=== PATIENT | male | born 1940 | race Caucasian/White ===

== ENCOUNTER 2016-10-17 00:57 | Inpatient (IN) | payer MEDICARE, MEDICAID ==
[~2016-10-17] VITALS: Ht 182.9 cm; Wt 107.0 kg
[2016-10-17 02:30] VITALS: BP 127/81
[2016-10-17] MEDS ORDERED: MAG HYDROX/AL HYDROX/SIMETH 30 ML UDC PO PRN (04:30)
[2016-10-17] MEDS ORDERED: ACETAMINOPHEN 325 MG TABLET PO PRN (04:30)
[2016-10-17] MEDS ORDERED: MAGNESIUM HYDROXIDE 30 ML UDC PO PRN (04:30)
[2016-10-17] MEDS ORDERED: LORAZEPAM 0.5 MG TABLET PO PRN (04:30)
[2016-10-17] MEDS ORDERED: RISP1TAB27 PO (04:32)
[2016-10-17] MEDS ORDERED: AMLO10TA2 PO (04:32)
[2016-10-17] MEDS ORDERED: EPIN0.3A3 IM (04:32)
[2016-10-17] MEDS ORDERED: DICL2.5D LEFTEYE (04:32)
[2016-10-17] MEDS ORDERED: MELA3TAB PO (04:32)
[2016-10-17] MEDS ORDERED: METO25TA6 PO (04:32)
[2016-10-17] MEDS ORDERED: AZEL137S7 NS (04:32)
[2016-10-17] MEDS ORDERED: PRED5DRO7 LEFTEYE (04:32)
[2016-10-17] MEDS ORDERED: MOXI3DRO LEFTEYE (04:32)
[2016-10-17] MEDS ORDERED: IPRA12.9 IH (04:32)
[2016-10-17 08:00] VITALS: BP 158/77
[2016-10-17] MEDS ORDERED: METO-302 PO (08:45)
[2016-10-17] MEDS ORDERED: RISP0.2515 PO (08:45)
[2016-10-17] MEDS ORDERED: RISP37.5 IM (08:48)
[2016-10-17 16:17] VITALS: BP 145/78
[2016-10-17] MEDS: METOPROLOL SUCCINATE 25 MG TAB.SR.24H PO SCH (16:35)
[2016-10-17] MEDS: CIPROFLOXACIN HCL 0.3% 5 ML BOTTLE LEFTEYE SCH ×3 (17:00→21:40)
[2016-10-17] MEDS ORDERED: DICLOFENAC 0.1% OPTH DROPS 5 ML BOTTLE LEFTEYE SCH (17:00)
[2016-10-17] MEDS: AZELASTINE NASAL SPRAY 30 ML BOTTLE NS SCH ×2 (17:00→18:11)
[2016-10-17] MEDS: prednisoLONE ACET 1% OPHT DROP 5 ML BOTTLE LEFTEYE SCH ×3 (17:00→21:40)
[2016-10-17 20:00] VITALS: BP 131/73
[2016-10-17] MEDS: IPRATROPIUM NEB FS 0.5 MG/2.5 ML AMPUL.NEB NEB SCH (20:43)
[2016-10-17] MEDS: BENZTROPINE MESYLATE (1 MG) 1 MG TABLET PO SCH ×2 (21:38→22:30)
[2016-10-17] MEDS: TEMAZEPAM 7.5 MG CAPSULE PO PRN (21:38)
[2016-10-17] MEDS: risperiDONE 1 MG TABLET PO SCH ×2 (21:38→22:00)
[2016-10-17] MEDS ORDERED: risperiDONE 0.25 MG TABLET PO SCH (22:00)
[2016-10-18] MEDS: IPRATROPIUM NEB FS 0.5 MG/2.5 ML AMPUL.NEB NEB SCH ×4 (01:41→20:37)
[2016-10-18 06:39] LABS: BASOPHILS % (AUTO) 0.4 % (0.0-2.0); DIFF TOTAL % 100 %; EOSINOPHILS # (AUTO) 0.1 /CMM (0.0-0.7); EOSINOPHILS % (AUTO) 1.7 % (0.0-6.0); HEMATOCRIT 39 % (39-51); HEMOGLOBIN 12.7 g/dL (13.5-17.5); LYMPHOCYTES # (AUTO) 1.1 /CMM (0.8-4.8); LYMPHOCYTES % (AUTO) 20.7 % (20.0-44.0); MEAN CORPUSCULAR HEMOGLOBIN 27 PG (26.0-33.0); MEAN CORPUSCULAR HGB CONC 33 g/dl (31.0-36.0); MEAN CORPUSCULAR VOLUME 82 fL (80-96); MONOCYTES # (AUTO) 0.5 /CMM (0.1-1.30); MONOCYTES % (AUTO) 8.4 % (2.0-12.0); NEUTROPHILS # (AUTO) 3.8 /CMM (1.8-8.9); NEUTROPHILS % (AUTO) 68.8 % (43.0-81.0); PLATELET COUNT (AUTO) 157 /CMM (150-450); RED BLOOD CELL COUNT(AUTO) 4.69 MIL/uL (4.5-6.0); WHITE BLOOD COUNT (AUTO) 5.5 K/uL (4.3-11.0)
[2016-10-18 07:48] LABS: BILIRUBIN,TOTAL 0.3 mg/dL (0.2-1.0); CALCIUM, SERUM 8.5 mg/dL (8.5-10.1); TOTAL PROTEIN, SERUM 6.3 g/dL (6.4-8.2)
[2016-10-18 08:13] VITALS: BP 160/88
[2016-10-18] MEDS ORDERED: risperiDONE 1 MG TABLET PO SCH (09:00)
[2016-10-18] MEDS: AZELASTINE NASAL SPRAY 30 ML BOTTLE NS SCH ×2 (09:00→17:00)
[2016-10-18] MEDS: CIPROFLOXACIN HCL 0.3% 5 ML BOTTLE LEFTEYE SCH ×4 (09:00→21:00)
[2016-10-18] MEDS: prednisoLONE ACET 1% OPHT DROP 5 ML BOTTLE LEFTEYE SCH ×4 (09:00→21:00)
[2016-10-18] MEDS: AMLODIPINE BESYLATE 10 MG TABLET PO SCH (11:10)
[2016-10-18] MEDS: METOPROLOL SUCCINATE 25 MG TAB.SR.24H PO SCH (11:11)
[2016-10-18] MEDS: risperiDONE 1 MG TABLET PO SCH ×2 (15:05→18:38)
[2016-10-18 15:58] VITALS: BP 140/70
[2016-10-18 19:57] VITALS: BP 145/79
[2016-10-18] MEDS: BENZTROPINE MESYLATE (1 MG) 1 MG TABLET PO SCH ×2 (21:45→22:30)
[2016-10-19] MEDS: IPRATROPIUM NEB FS 0.5 MG/2.5 ML AMPUL.NEB NEB SCH ×4 (02:08→19:17)
[2016-10-19 08:00] VITALS: BP 150/78
[2016-10-19] MEDS: METOPROLOL SUCCINATE 25 MG TAB.SR.24H PO SCH (09:05)
[2016-10-19] MEDS: risperiDONE 1 MG TABLET PO SCH ×2 (09:05→17:18)
[2016-10-19] MEDS: AMLODIPINE BESYLATE 10 MG TABLET PO SCH (09:05)
[2016-10-19] MEDS: CIPROFLOXACIN HCL 0.3% 5 ML BOTTLE LEFTEYE SCH ×4 (09:08→20:50)
[2016-10-19] MEDS: prednisoLONE ACET 1% OPHT DROP 5 ML BOTTLE LEFTEYE SCH ×4 (09:08→20:49)
[2016-10-19] MEDS: AZELASTINE NASAL SPRAY 30 ML BOTTLE NS SCH ×2 (09:08→17:21)
[2016-10-19 16:00] VITALS: BP 147/84
[2016-10-19 20:00] VITALS: BP 97/61
[2016-10-19] MEDS: BENZTROPINE MESYLATE (1 MG) 1 MG TABLET PO SCH ×2 (21:12→22:30)
[2016-10-20] MEDS: IPRATROPIUM NEB FS 0.5 MG/2.5 ML AMPUL.NEB NEB SCH ×4 (01:49→20:23)
[2016-10-20] MEDS: risperiDONE 1 MG TABLET PO SCH ×2 (08:18→17:30)
[2016-10-20] MEDS: AMLODIPINE BESYLATE 10 MG TABLET PO SCH (08:20)
[2016-10-20] MEDS: METOPROLOL SUCCINATE 25 MG TAB.SR.24H PO SCH (08:20)
[2016-10-20 08:49] VITALS: BP 153/77
[2016-10-20] MEDS: AZELASTINE NASAL SPRAY 30 ML BOTTLE NS SCH ×2 (09:04→17:00)
[2016-10-20 16:25] VITALS: BP 147/68
[2016-10-20 20:00] VITALS: BP 145/86
[2016-10-20 20:06] VITALS: BP 145/56
[2016-10-20] MEDS: BENZTROPINE MESYLATE (1 MG) 1 MG TABLET PO SCH ×2 (22:00→22:30)
[2016-10-21] MEDS: IPRATROPIUM NEB FS 0.5 MG/2.5 ML AMPUL.NEB NEB SCH ×4 (01:24→19:30)
[2016-10-21 08:00] VITALS: BP 147/85
[2016-10-21] MEDS: AZELASTINE NASAL SPRAY 30 ML BOTTLE NS SCH ×2 (09:00→17:00)
[2016-10-21] MEDS: risperiDONE 1 MG TABLET PO SCH ×2 (09:04→18:02)
[2016-10-21] MEDS: METOPROLOL SUCCINATE 25 MG TAB.SR.24H PO SCH (09:04)
[2016-10-21] MEDS: AMLODIPINE BESYLATE 10 MG TABLET PO SCH (09:05)
[2016-10-21 12:00] VITALS: BP 127/77
[2016-10-21 20:00] VITALS: BP_SYST 141; BP_DIAS 49; BP_DIAS 79
[2016-10-21] MEDS: TEMAZEPAM 7.5 MG CAPSULE PO PRN (20:54)
[2016-10-21] MEDS: BENZTROPINE MESYLATE (1 MG) 1 MG TABLET PO SCH ×2 (20:54→22:30)
[2016-10-22] MEDS: IPRATROPIUM NEB FS 0.5 MG/2.5 ML AMPUL.NEB NEB SCH ×4 (01:30→19:24)
[2016-10-22 08:00] VITALS: BP 140/90
[2016-10-22] MEDS: AMLODIPINE BESYLATE 10 MG TABLET PO SCH (10:35)
[2016-10-22] MEDS: METOPROLOL SUCCINATE 25 MG TAB.SR.24H PO SCH (10:35)
[2016-10-22] MEDS: risperiDONE 1 MG TABLET PO SCH ×2 (10:36→17:25)
[2016-10-22] MEDS: AZELASTINE NASAL SPRAY 30 ML BOTTLE NS SCH ×2 (14:00→17:00)
[2016-10-22 16:00] VITALS: BP 142/84
[2016-10-22 20:00] VITALS: BP 137/71
[2016-10-22] MEDS: BENZTROPINE MESYLATE (1 MG) 1 MG TABLET PO SCH ×2 (21:31→22:30)
[2016-10-23] MEDS: IPRATROPIUM NEB FS 0.5 MG/2.5 ML AMPUL.NEB NEB SCH ×4 (01:16→19:21)
[2016-10-23 08:00] VITALS: BP 166/87
[2016-10-23] MEDS: AZELASTINE NASAL SPRAY 30 ML BOTTLE NS SCH ×2 (09:00→17:00)
[2016-10-23] MEDS: risperiDONE 1 MG TABLET PO SCH ×2 (09:09→18:31)
[2016-10-23] MEDS: METOPROLOL SUCCINATE 25 MG TAB.SR.24H PO SCH (09:10)
[2016-10-23] MEDS: AMLODIPINE BESYLATE 10 MG TABLET PO SCH (09:10)
[2016-10-23 16:00] VITALS: BP 133/77
[2016-10-23 20:00] VITALS: BP 111/55
[2016-10-23] MEDS: BENZTROPINE MESYLATE (1 MG) 1 MG TABLET PO SCH ×2 (21:09→22:30)
[2016-10-24] MEDS: IPRATROPIUM NEB FS 0.5 MG/2.5 ML AMPUL.NEB NEB SCH ×4 (01:38→19:30)
[2016-10-24 08:00] VITALS: BP 146/79
[2016-10-24] MEDS: AZELASTINE NASAL SPRAY 30 ML BOTTLE NS SCH ×2 (09:00→17:00)
[2016-10-24] MEDS: risperiDONE 1 MG TABLET PO SCH ×2 (10:26→20:10)
[2016-10-24] MEDS: METOPROLOL SUCCINATE 25 MG TAB.SR.24H PO SCH (10:27)
[2016-10-24] MEDS: AMLODIPINE BESYLATE 10 MG TABLET PO SCH (10:28)
[2016-10-24 16:00] VITALS: BP 145/82
[2016-10-24 20:00] VITALS: BP 145/83
[2016-10-24] MEDS ORDERED: risperiDONE 1 MG TABLET PO ONE (22:00)
[2016-10-24] MEDS: BENZTROPINE MESYLATE (1 MG) 1 MG TABLET PO SCH (22:26)
[2016-10-25] MEDS: IPRATROPIUM NEB FS 0.5 MG/2.5 ML AMPUL.NEB NEB SCH ×4 (00:59→21:18)
[2016-10-25 08:00] VITALS: BP 158/89
[2016-10-25] MEDS: AZELASTINE NASAL SPRAY 30 ML BOTTLE NS SCH ×2 (09:00→17:00)
[2016-10-25] MEDS: METOPROLOL SUCCINATE 25 MG TAB.SR.24H PO SCH (09:08)
[2016-10-25] MEDS: risperiDONE 1 MG TABLET PO SCH ×2 (09:08→21:05)
[2016-10-25] MEDS: AMLODIPINE BESYLATE 10 MG TABLET PO SCH (09:08)
[2016-10-25 16:00] VITALS: BP 144/70
[2016-10-25 19:41] VITALS: BP 137/80
[2016-10-25] MEDS ORDERED: risperiDONE 1 MG TABLET PO SCH (22:00)
[2016-10-25] MEDS: BENZTROPINE MESYLATE (1 MG) 1 MG TABLET PO SCH (22:56)
[2016-10-26] MEDS: IPRATROPIUM NEB FS 0.5 MG/2.5 ML AMPUL.NEB NEB SCH ×3 (01:30→13:46)
[2016-10-26 08:00] VITALS: BP 138/76
[2016-10-26] MEDS: risperiDONE 1 MG TABLET PO SCH (08:59)
[2016-10-26 09:00] VITALS: BP 138/76
[2016-10-26] MEDS: AMLODIPINE BESYLATE 10 MG TABLET PO SCH (09:00)
[2016-10-26] MEDS: AZELASTINE NASAL SPRAY 30 ML BOTTLE NS SCH (09:00)
[2016-10-26] MEDS: METOPROLOL SUCCINATE 25 MG TAB.SR.24H PO SCH (09:00)
== END 2016-10-26 16:00 | disposition home or self-care (01) | DRG 885 ==
LOC: GPS 02:40
PROVIDERS: ADMIT Psychiatry & Neurology Psychosomatic Medicine; ATTEND Internal Medicine Nephrology
DX: F20.9 Schizophrenia, unspecified (principal); F02.80 Dementia in other diseases classified elsewhere, unspecified severity, without behavioral disturbance, psychotic disturbance, mood disturbance, and anxiety; G30.9 Alzheimer's disease, unspecified; I10 Essential (primary) hypertension; F09 Unspecified mental disorder due to known physiological condition; D64.9 Anemia, unspecified; Z91.14 Patient's other noncompliance with medication regimen; F29 Unspecified psychosis not due to a substance or known physiological condition
CPT/HCPCS: 36415; 80053-TC; 85025-TC; 87081-TC; 94799-TC

== ENCOUNTER 2016-11-20 17:25 | Inpatient (IN) | payer MEDICARE, MEDICAID ==
[~2016-11-20] VITALS: Ht 165.1 cm; Wt 105.2 kg
[~2016-11-20 17:25] MED LIST: AMLO10TA2 PO; AZEL137S7 NS; DICL2.5D LEFTEYE; IPRA12.9 IH; METO-302 PO; MOXI3DRO LEFTEYE; PRED5DRO7 LEFTEYE; RISP0.2515 PO; RISP37.5 IM
[2016-11-20 17:37] LABS: BASOPHILS % (AUTO) 0.5 % (0.0-2.0); EOSINOPHILS # (AUTO) 0.1 /CMM (0.0-0.7); EOSINOPHILS % (AUTO) 1.9 % (0.0-6.0); HEMATOCRIT 43 % (39-51); HEMOGLOBIN 13.9 g/dL (13.5-17.5); LYMPHOCYTES # (AUTO) 1.2 /CMM (0.8-4.8); LYMPHOCYTES % (AUTO) 21.6 % (20.0-44.0); MEAN CORPUSCULAR HEMOGLOBIN 27 PG (26.0-33.0); MEAN CORPUSCULAR HGB CONC 32 g/dl (31.0-36.0); MEAN CORPUSCULAR VOLUME 83 fL (80-96); MONOCYTES # (AUTO) 0.4 /CMM (0.1-1.30); MONOCYTES % (AUTO) 6.9 % (2.0-12.0); NEUTROPHILS # (AUTO) 3.9 /CMM (1.8-8.9); NEUTROPHILS % (AUTO) 69.1 % (43.0-81.0); PLATELET COUNT (AUTO) 215 /CMM (150-450); RDW COEFFICIENT OF VARIATION 13.6 (11.5-15.0); WHITE BLOOD COUNT (AUTO) 5.6 K/uL (4.3-11.0)
[2016-11-20 17:47] LABS: CARBON DIOXIDE 26 mmol/L (21-32); CHLORIDE 106 mmol/L (98-107); GLUCOSE 98 mg/dL (74-106); POTASSIUM 4.1 mmol/L (3.5-5.1); SODIUM SERUM 141 mmol/L (136-145); UREA NITROGEN, BLOOD 17 mg/dL (7-18)
[2016-11-20 17:52] LABS: ALANINE AMINOTRANSFERASE 57 U/L (12-78); ALBUMIN 3.6 g/dL (3.4-5.0); ALKALINE PHOSPHATASE 107 U/L (46-116); ASPARTATE AMINOTRANSFERASE 56 U/L (15-37); BILIRUBIN,DIRECT 0.1 mg/dL (0.0-0.2); BILIRUBIN,TOTAL 0.2 mg/dL (0.2-1.0); CALCIUM, SERUM 9.1 mg/dL (8.5-10.1); TOTAL PROTEIN, SERUM 7.5 g/dL (6.4-8.2)
[2016-11-20 17:55] LABS: APPEARANCE,URINE Clear (CLEAR); BILIRUBIN,URINE Negative (NEGATIVE); BLOOD, URINE Negative Ery/uL (NEGATIVE); COLOR,URINE Yellow (YELLOW); KETONES,URINE Negative (NEGATIVE); LEUKOCYTE ESTERASE ,URINE Negative (NEGATIVE); NITRITE, URINE Negative (NEGATIVE); PH,URINE 7.5 (5.0-8.0); PROTEIN,URINE Negative (NEGATIVE); UGLUCOSE Negative (NEGATIVE); UROBILINOGEN,URINE 0.2 EU/dL (0.2)
[2016-11-20 17:56] LABS: ACETAMINOPHEN < 2 ug/ml (10-30); ALCOHOL, BLOOD < 3 mg/dL (0-0); SALICYLATE < 2.8 mg/dL (2.8-20.0)
[2016-11-20 18:07] LABS: CANNABINOID, URINE NEGATIVE (NEGATIVE); PHENCYCLIDINE SCREEN,URINE NEGATIVE (NEGATIVE)
--- NOTE | 2016-11-20 18:15 | NUR ---
WILL FROM PRIVATE RESIDENCE FOR PSYCH EVAL: PT PARANOID AND AGRESSIVE PER SON,. ON HOLD FOR DANGER TO SELF. PATIENT IS AAO3, WITH SPISODE OF CONFUSION. NO ACUTE DISTRESS, RESPIRATION EVEN AND UNLABORED. AFEBRILE. VSS
--- NOTE | 2016-11-20 18:17 | NUR ---
REPORT GIVEN TO NURSE SOTELO FROM GPS FOR GLEN
--- NOTE | 2016-11-20 18:18 | NUR ---
PATIENT TRASPORTED TO GPS. VSS
[2016-11-20] MEDS ORDERED: MAGNESIUM HYDROXIDE 30 ML UDC PO PRN ×2 (19:00→20:30)
[2016-11-20] MEDS ORDERED: Z GUARD REMEDY 2 OZ OINT TP PRN (19:00)
[2016-11-20] MEDS ORDERED: ACETAMINOPHEN 325 MG TABLET PO PRN ×2 (19:00→20:30)
[2016-11-20] MEDS ORDERED: ONDANSETRON HCL/PF 4 MG/2 ML VIAL IVP PRN (19:00)
[2016-11-20] MEDS ORDERED: HYDROCODONE/APAP 5/325MG 1 EACH TABLET PO PRN (19:00)
[2016-11-20] MEDS ORDERED: MAG HYDROX/AL HYDROX/SIMETH 30 ML UDC PO PRN ×2 (19:00→20:30)
--- NOTE | 2016-11-20 19:00 | NUR ---
GPS RN NOTE ADMITTED A 76YO MALE FROM [facility] ER, INITIALLY CAME FROM HOME. PATIENT ADMITTED ON 5150 HOLD FOR DTS AND GD. PER HOLD PATIENT WAS EXHIBITING BIZARRE BEHAVIOR LIKE YELLING, TALKING TO SELF AND BEING DELUSIONAL AND THE FAMILY WAS CONCERNED. THE 5150 WAS REVIEWED AND THE DOCUMENTATION APPEARS TO REFLECT THE PRESENTATION OF THE PATIENT. PATIENT WAS PLACED IN BED, COMFORTABLE AND SHOWS NO S/S OR COMPLAINTS OF PAIN AT THIS TIME. NO APPARENT DISTRESS NOTED. RESPIRATIONS EVEN. BREATHING PATTERN NON LABORED WITH EQUAL RISE AND FALL OF THE CHEST. PATIENTS A/O X3. AMBULATORY AND RESPONDS TO QUESTIONS APPROPRIATELY. THOUGHT PROCESS IS INTACT. PATIENT IS UNDER THE PSYCHIATRIC CARE OF DR. DOMINGUEZ AND UNDER THE MEDICAL CARE OF DR. VILLAGOMEZ. DR. FLYNN WAS NOTIFIED FOR MED RECONCILIATION. PATIENTS BELONGS WERE INVENTORY AND CHECKED FOR CONTRABAND. PATIENTS ADVANCE DIRECTIVE PREFERENCE, IMMUNIZATION QUESTIONAIRE AND VALUABLES CHECKED IN TO SAFE. PATIENTS BED IN LOW LOCKED POSITION. WILL CONTINUE TO MONITOR PATIENT Q15 MINUTES WITH THE HELP OF THE STAFF TO MAINTAIN SAFETY.
[2016-11-20 20:00] VITALS: BP 142/96
[2016-11-20] MEDS ORDERED: LORAZEPAM 0.5 MG TABLET PO PRN (20:30)
[2016-11-21 07:38] LABS: BASOPHILS % (AUTO) 0.3 % (0.0-2.0); EOSINOPHILS # (AUTO) 0.1 /CMM (0.0-0.7); EOSINOPHILS % (AUTO) 1.7 % (0.0-6.0); HEMATOCRIT 37 % (39-51); HEMOGLOBIN 12.2 g/dL (13.5-17.5); LYMPHOCYTES # (AUTO) 0.9 /CMM (0.8-4.8); LYMPHOCYTES % (AUTO) 16.2 % (20.0-44.0); MEAN CORPUSCULAR HEMOGLOBIN 28 PG (26.0-33.0); MEAN CORPUSCULAR HGB CONC 34 g/dl (31.0-36.0); MEAN CORPUSCULAR VOLUME 82 fL (80-96); MONOCYTES # (AUTO) 0.4 /CMM (0.1-1.30); NEUTROPHILS # (AUTO) 4.3 /CMM (1.8-8.9); NEUTROPHILS % (AUTO) 74.8 % (43.0-81.0); PLATELET COUNT (AUTO) 189 /CMM (150-450); RDW COEFFICIENT OF VARIATION 14.3 (11.5-15.0); RED BLOOD CELL COUNT(AUTO) 4.44 MIL/uL (4.5-6.0); WHITE BLOOD COUNT (AUTO) 5.7 K/uL (4.3-11.0)
[2016-11-21 07:52] VITALS: BP 168/90
[2016-11-21 08:11] LABS: ALBUMIN 3.1 g/dL (3.4-5.0); BILIRUBIN,TOTAL 0.3 mg/dL (0.2-1.0); CALCIUM, SERUM 8.5 mg/dL (8.5-10.1); CREATININE 1.1 mg/dL (0.6-1.3); POTASSIUM 3.9 mmol/L (3.5-5.1); TOTAL PROTEIN, SERUM 6.7 g/dL (6.4-8.2)
[2016-11-21] MEDS: PANTOPRAZOLE 40 MG TABLET.DR PO SCH (08:30)
[2016-11-21] MEDS: AMLODIPINE BESYLATE 10 MG TABLET PO SCH (08:30)
[2016-11-21] MEDS: METOPROLOL SUCCINATE 25 MG TAB.SR.24H PO SCH (08:30)
[2016-11-21] MEDS: risperiDONE 1 MG TABLET PO SCH ×2 (13:22→16:59)
[2016-11-21] MEDS: BENZTROPINE MESYLATE (1 MG) 1 MG TABLET PO SCH ×2 (13:23→16:59)
[2016-11-21 16:01] VITALS: BP 130/88
[2016-11-21 20:00] VITALS: BP 151/75
[2016-11-22 08:00] VITALS: BP 136/87
[2016-11-22 08:53] VITALS: BP 136/87
[2016-11-22] MEDS: AMLODIPINE BESYLATE 10 MG TABLET PO SCH (09:21)
[2016-11-22] MEDS: PANTOPRAZOLE 40 MG TABLET.DR PO SCH (09:21)
[2016-11-22] MEDS: risperiDONE 1 MG TABLET PO SCH ×2 (09:22→16:34)
[2016-11-22] MEDS: METOPROLOL SUCCINATE 25 MG TAB.SR.24H PO SCH (09:22)
[2016-11-22] MEDS: BENZTROPINE MESYLATE (1 MG) 1 MG TABLET PO SCH ×2 (09:22→16:34)
[2016-11-22 16:18] VITALS: BP 125/74
[2016-11-22 19:45] VITALS: BP 146/76
[2016-11-23 08:00] VITALS: BP 132/88
[2016-11-23] MEDS: METOPROLOL SUCCINATE 25 MG TAB.SR.24H PO SCH (08:39)
[2016-11-23] MEDS: BENZTROPINE MESYLATE (1 MG) 1 MG TABLET PO SCH ×2 (08:39→18:38)
[2016-11-23] MEDS: AMLODIPINE BESYLATE 10 MG TABLET PO SCH (08:39)
[2016-11-23] MEDS: PANTOPRAZOLE 40 MG TABLET.DR PO SCH (08:39)
[2016-11-23] MEDS: risperiDONE 1 MG TABLET PO SCH ×2 (08:40→18:38)
--- NOTE | 2016-11-23 08:40 | NUR ---
ADMINISTERED ATIVAN 0.5 MG PO PRN FOR ANXIETY, PARANOIA, V/S TAKEN BP-132/88, P-63, CONTINUED MONITORING.
--- NOTE | 2016-11-23 09:21 | NUR ---
I have reviewed this patients psychosocial dated 10/20/16 and I can attest to the accuracy of the information therein. There have been no changes since his last assessment. Pt. still appears paranoid with delusional thoughts and a irritable with flat affect. He is compliant with medications. Pt. denies suicidal/homicidal ideations.
--- NOTE | 2016-11-23 09:28 | NUR ---
Initial discharge plan: Pt. lives alone at [address] [facility] [address] . Pt. has a brother, Hari Ferrara [phone] who is involved. Pt. wants to return back home upon discharge. SW will follow up with MD and Pt and will help form safe and proper discharge. Pt. may possibly need placement as he did not do well at home after previous hospitalization.
--- NOTE | 2016-11-23 10:35 | NUR ---
CARA spoke with pt's brother, Hari Ferrara [phone] who wants the hospital to initiate conservatorship as he is not able to live at home and should not be allowed to make his own decisions as he is very delusional and danger to self. CARA will follow up with . Addendum: 11/24/16 at 1200 by SAADIA MARROQUIN Hari provided pt's primary psychiatrist's number Arpita Anu [phone]
[2016-11-23 16:00] VITALS: BP 132/75
[2016-11-23 19:49] VITALS: BP 131/77
[2016-11-24 08:00] VITALS: BP 148/95
[2016-11-24] MEDS: AMLODIPINE BESYLATE 10 MG TABLET PO SCH (09:44)
[2016-11-24] MEDS: risperiDONE 1 MG TABLET PO SCH ×2 (09:45→17:56)
[2016-11-24] MEDS: PANTOPRAZOLE 40 MG TABLET.DR PO SCH (09:45)
[2016-11-24] MEDS: BENZTROPINE MESYLATE (1 MG) 1 MG TABLET PO SCH ×2 (09:45→17:57)
[2016-11-24] MEDS: METOPROLOL SUCCINATE 25 MG TAB.SR.24H PO SCH (09:46)
--- NOTE | 2016-11-24 11:59 | NUR ---
Pt's brother, Hari Ferrara [phone] called again to check on the status. SW notified MD about his requests. Will follow up .
[2016-11-24 16:00] VITALS: BP 139/88
[2016-11-24 19:54] VITALS: BP 123/77
[2016-11-25 08:00] VITALS: BP 129/76
[2016-11-25] MEDS: risperiDONE 1 MG TABLET PO SCH ×2 (09:45→18:10)
[2016-11-25] MEDS: METOPROLOL SUCCINATE 25 MG TAB.SR.24H PO SCH (09:45)
[2016-11-25] MEDS: BENZTROPINE MESYLATE (1 MG) 1 MG TABLET PO SCH ×2 (09:45→18:10)
[2016-11-25] MEDS: AMLODIPINE BESYLATE 10 MG TABLET PO SCH (09:46)
[2016-11-25] MEDS: PANTOPRAZOLE 40 MG TABLET.DR PO SCH (09:48)
[2016-11-25 16:00] VITALS: BP 134/86
--- NOTE | 2016-11-25 17:00 | NUR ---
dr. russell left note on pt,s chart.
--- NOTE | 2016-11-25 18:00 | NUR ---
dr. shin in to see pt.
--- NOTE | 2016-11-25 19:38 | NUR ---
GPS/RN NOTE: PATIENT IN BED, RESTING COMFORTABLY, NO APPARENT DISTRESS NOTED.
[2016-11-25 20:12] VITALS: BP 154/76
[2016-11-25 20:51] VITALS: BP 154/76
--- NOTE | 2016-11-25 21:32 | NUR ---
GPS/RN NOTE: PATIENT ASLEEP, SNORING. NO APPARENT DISTRESS NOTED. WILL CONTINUE TO MONITOR FOR SAFETY.
[2016-11-26 08:00] VITALS: BP 166/71
[2016-11-26] MEDS: PANTOPRAZOLE 40 MG TABLET.DR PO SCH (08:10)
[2016-11-26] MEDS: AMLODIPINE BESYLATE 10 MG TABLET PO SCH (08:10)
[2016-11-26] MEDS: BENZTROPINE MESYLATE (1 MG) 1 MG TABLET PO SCH ×2 (08:10→16:22)
[2016-11-26] MEDS: METOPROLOL SUCCINATE 25 MG TAB.SR.24H PO SCH (08:10)
[2016-11-26] MEDS: risperiDONE 1 MG TABLET PO SCH ×2 (08:11→16:22)
[2016-11-26] MEDS ORDERED: INVEGA 156 MG IM ONE (09:30)
--- NOTE | 2016-11-26 09:30 | NUR ---
RN-CO: INVEGA 156 MG IM X1 NOT GIVEN /(WEDNESDAY) PATIENT'S MED IS . DR DOMINGUEZ NOTIFIED AND ORDERED TO CANCEL ORDER.
[2016-11-26 11:20] VITALS: BP 123/76
--- NOTE | 2016-11-26 12:08 | NUR ---
[place] SHEETS requested that this insurance underwriter sales called brother who is demanding conservatorship. Spoke with brother, Hari [phone] who said " I will see that I get what I want." He said [facility] Chastity Saeed [phone] said pt. needs to be conserved. She has not met our patient. Advised brother that Dr Starr and Dr Reaves our special forces medical sergeant discussed the case and discussed he will be put on long-acting medication and we would use the least restrictive means to stabilize him.. Hari said he is worried about his assets.Provided him with referrals for probate conservatorship as this could protect patient's assets.Luis A Stover was given [phone] and [facility] [phone]. He did not want any more referrals for this. Brother was quite threatening and said " I will find a way to get what I want." Advised Dr Starr and Spring of this interaction.
[2016-11-26 16:01] VITALS: BP 151/71
--- NOTE | 2016-11-26 16:25 | NUR ---
Dr Starr made a decision to apply for [facility] conservatorship and brother Hari [phone] was advised of this by Spring Stevens.
[2016-11-26 20:00] VITALS: BP 146/75
[2016-11-27 08:00] VITALS: BP 134/88
[2016-11-27] MEDS: risperiDONE 1 MG TABLET PO SCH ×2 (08:38→16:21)
[2016-11-27] MEDS: BENZTROPINE MESYLATE (1 MG) 1 MG TABLET PO SCH ×2 (08:38→16:21)
[2016-11-27] MEDS: METOPROLOL SUCCINATE 25 MG TAB.SR.24H PO SCH (08:38)
[2016-11-27] MEDS: AMLODIPINE BESYLATE 10 MG TABLET PO SCH (08:39)
[2016-11-27] MEDS: PANTOPRAZOLE 40 MG TABLET.DR PO SCH (08:39)
--- NOTE | 2016-11-27 11:12 | NUR ---
CARA filled out LPS conservatorship paperwork and is waiting for MD to complete the rest so it can be faxed to Public Guardian's office. CARA notified the MD and it will be done today.
--- NOTE | 2016-11-27 13:53 | NUR ---
LPS conservatorship has been filled out and faxed to Public Guardian's office at [phone] phone [phone]. Will follow up
[2016-11-27 16:00] VITALS: BP 153/82
[2016-11-27] MEDS ORDERED: INVEGA 156 MG IM ONE (16:00)
[2016-11-27] MEDS ORDERED: risperiDONE 1 MG TABLET PO PRN (17:00)
--- NOTE | 2016-11-27 19:09 | NUR ---
GPS RN NOTE, RECEIVED PATIENT AWAKE AND IN BED, NO S/S OR COMPLAINTS OF PAIN AT THIS TIME. PATIENT IS DISPLAYING NO S/S OF APPARENT DISTRESS AT THIS TIME. PATIENT HAS A ONE TO ONE SITTER FOR BEING AGGRESSIVE WITH STAFF. PATIENT BREATHING IS UNLABORED WITH EQUAL RISE AND FALL OF THE CHEST. PATIENT IS ALERT AND ORIENTED X 4 ON ROOM AIR WITH A SPO2 95%. PATIENT COMPLIANT WITH MEDICATIONS, DEPRESSED, COOPERATIVE, CONFUSED AT TIMES, AND NEEDS REORIENTATION. PATIENT DENIES SUICIDE AND HOMICIDAL IDEATIONS AT THIS TIME. PATIENT ASSISTED WITH TURNING AND REPOSITIONING Q2HR AND PRN FOR COMFORT AND CIRCULATION. PATIENT HAS NO NEEDS AT THIS TIME. PATIENT EDUCATED ON THE USE OF THE CALL HOBSON. PATIENT BED SIDE RAILS UP X2 FOR SAFETY, BED IS LOCKED AND LOW WILL CONTINUE TO MONITOR AND MAINTAIN SAFETY.
[2016-11-27 20:00] VITALS: BP 143/81
[2016-11-28 08:00] VITALS: BP 151/85
[2016-11-28] MEDS: METOPROLOL SUCCINATE 25 MG TAB.SR.24H PO SCH (08:26)
[2016-11-28] MEDS: BENZTROPINE MESYLATE (1 MG) 1 MG TABLET PO SCH ×2 (08:26→17:14)
[2016-11-28] MEDS: AMLODIPINE BESYLATE 10 MG TABLET PO SCH (08:26)
[2016-11-28] MEDS: PANTOPRAZOLE 40 MG TABLET.DR PO SCH (08:26)
[2016-11-28 16:00] VITALS: BP 145/75
[2016-11-28 20:00] VITALS: BP 142/74
[2016-11-29 08:00] VITALS: BP 150/75
[2016-11-29] MEDS: AMLODIPINE BESYLATE 10 MG TABLET PO SCH (08:20)
[2016-11-29] MEDS: PANTOPRAZOLE 40 MG TABLET.DR PO SCH (08:20)
[2016-11-29] MEDS: BENZTROPINE MESYLATE (1 MG) 1 MG TABLET PO SCH ×2 (08:20→19:02)
[2016-11-29] MEDS: METOPROLOL SUCCINATE 25 MG TAB.SR.24H PO SCH (08:20)
[2016-11-29 15:43] VITALS: BP 120/71
[2016-11-29 19:51] VITALS: BP 103/63
[2016-11-30 08:00] VITALS: BP 135/79
[2016-11-30] MEDS: PANTOPRAZOLE 40 MG TABLET.DR PO SCH (08:18)
[2016-11-30] MEDS: AMLODIPINE BESYLATE 10 MG TABLET PO SCH (08:18)
[2016-11-30] MEDS: BENZTROPINE MESYLATE (1 MG) 1 MG TABLET PO SCH ×2 (08:19→16:59)
[2016-11-30] MEDS: METOPROLOL SUCCINATE 25 MG TAB.SR.24H PO SCH (08:20)
--- NOTE | 2016-11-30 13:51 | NUR ---
SW received a voicemail from [facility] from Office of Public Guardian [phone] confirming of the receipt of pt's conservatorship paperwork. CARA will follow up tomorrow on the status.
[2016-11-30 16:00] VITALS: BP 135/95
[2016-11-30 19:36] VITALS: BP 142/68
[2016-12-01 07:59] VITALS: BP 145/87
[2016-12-01] MEDS: BENZTROPINE MESYLATE (1 MG) 1 MG TABLET PO SCH ×2 (08:04→16:54)
[2016-12-01] MEDS: PANTOPRAZOLE 40 MG TABLET.DR PO SCH (08:04)
[2016-12-01] MEDS: AMLODIPINE BESYLATE 10 MG TABLET PO SCH (08:04)
[2016-12-01] MEDS: METOPROLOL SUCCINATE 25 MG TAB.SR.24H PO SCH (08:06)
--- NOTE | 2016-12-01 10:36 | NUR ---
SW received a voicemail from Hari Gurrola [phone] from the public guardian's office regarding pt's conservatorship paperwork. SW followed up.
[2016-12-01 15:10] VITALS: BP 129/79
[2016-12-01 20:01] VITALS: BP 116/57
[2016-12-02 08:00] VITALS: BP 159/80
[2016-12-02] MEDS: AMLODIPINE BESYLATE 10 MG TABLET PO SCH (09:03)
[2016-12-02] MEDS: BENZTROPINE MESYLATE (1 MG) 1 MG TABLET PO SCH ×2 (09:03→16:19)
[2016-12-02] MEDS: PANTOPRAZOLE 40 MG TABLET.DR PO SCH (09:04)
[2016-12-02] MEDS: METOPROLOL SUCCINATE 25 MG TAB.SR.24H PO SCH (11:41)
[2016-12-02 16:00] VITALS: BP 144/79
[2016-12-02 20:41] VITALS: BP 154/78
[2016-12-03 08:07] VITALS: BP 132/65
[2016-12-03] MEDS: BENZTROPINE MESYLATE (1 MG) 1 MG TABLET PO SCH ×2 (08:10→17:37)
[2016-12-03] MEDS: METOPROLOL SUCCINATE 25 MG TAB.SR.24H PO SCH (08:12)
[2016-12-03] MEDS: AMLODIPINE BESYLATE 10 MG TABLET PO SCH (08:12)
[2016-12-03] MEDS: PANTOPRAZOLE 40 MG TABLET.DR PO SCH (08:13)
[2016-12-03 15:47] VITALS: BP 126/73
--- NOTE | 2016-12-03 19:12 | NUR ---
GPS/RN NOTE: PATIENT UP AT THE DINING AREA WITH HIS ROOM MATE. NO ACUTE DISTRESS NOTED.
[2016-12-03 20:00] VITALS: BP 135/71
[2016-12-04 06:39] LABS: CALCIUM, SERUM 8.5 mg/dL (8.5-10.1); PHOSPHORUS 4.1 mg/dL (2.5-4.9); POTASSIUM 4.2 mmol/L (3.5-5.1)
[2016-12-04 08:01] VITALS: BP 142/90
[2016-12-04] MEDS: PANTOPRAZOLE 40 MG TABLET.DR PO SCH (09:28)
[2016-12-04] MEDS: AMLODIPINE BESYLATE 10 MG TABLET PO SCH (09:29)
[2016-12-04] MEDS: METOPROLOL TARTRATE 25 MG TABLET PO SCH ×2 (09:29→20:53)
[2016-12-04] MEDS: BENZTROPINE MESYLATE (1 MG) 1 MG TABLET PO SCH ×2 (09:29→17:18)
--- NOTE | 2016-12-04 09:52 | NUR ---
CARA left a voicemail for Adra from Office of Public Guardian [phone] to follow up on Conservatorship status.
--- NOTE | 2016-12-04 10:35 | NUR ---
RN-CO: DR DOMINGUEZ GAVE T.O. OF STAT EKG, NOTED.
--- NOTE | 2016-12-04 11:17 | NUR ---
RN-CO: DR DOMINGUEZ WAS NOTIFIED REGARDING THE RESULT OF EKG.AWAITING TO CALL BACK.
--- NOTE | 2016-12-04 13:13 | NUR ---
RN-CO: Patient was seen by Dr Mack with order.
--- NOTE | 2016-12-04 15:07 | NUR ---
CARA spoke with Adra from Office of Public Guardian [phone] and no TCON or Z number has been assigned yet. CARA notified the
[2016-12-04 15:34] VITALS: BP 108/52
--- NOTE | 2016-12-04 19:36 | NUR ---
GPS/RN NOTE: PATIENT SITTING AT THE BENSON-CHAIR, UPSET, ANGRY, AGITATED. NO RESPONSE WHEN ENGAGED. NO ACUTE DISTRESS NOTED.
[2016-12-04 20:00] VITALS: BP 109/70
[2016-12-05] VITALS (7 sets, daily range): BP systolic 127–143; BP diastolic 61–83
[2016-12-05] MEDS ORDERED: INVEGA 156 MG IM ONE (09:00)
[2016-12-05] MEDS: METOPROLOL TARTRATE 25 MG TABLET PO SCH ×2 (09:04→21:33)
[2016-12-05] MEDS: AMLODIPINE BESYLATE 10 MG TABLET PO SCH (09:05)
[2016-12-05] MEDS: PANTOPRAZOLE 40 MG TABLET.DR PO SCH (09:05)
[2016-12-05] MEDS: BENZTROPINE MESYLATE (1 MG) 1 MG TABLET PO SCH ×2 (09:05→18:13)
[2016-12-06 08:00] VITALS: BP 132/71
[2016-12-06] MEDS: METOPROLOL TARTRATE 25 MG TABLET PO SCH ×2 (08:05→20:25)
[2016-12-06] MEDS: BENZTROPINE MESYLATE (1 MG) 1 MG TABLET PO SCH ×2 (08:05→16:48)
[2016-12-06] MEDS: AMLODIPINE BESYLATE 10 MG TABLET PO SCH (08:05)
[2016-12-06] MEDS: PANTOPRAZOLE 40 MG TABLET.DR PO SCH (08:05)
[2016-12-06 16:00] VITALS: BP 109/71
[2016-12-06 16:17] VITALS: BP 109/71
--- NOTE | 2016-12-06 19:28 | NUR ---
GPS/RN NOTE: Received awake resting in bed, comfortable, shows no s/s of pain at this time. no apparent distress noted. Breathing pattern non-labored. Responds when engaged. Calm and no untoward behavior noted.
[2016-12-06 19:48] VITALS: BP 126/59
--- NOTE | 2016-12-06 20:25 | NUR ---
GPS/RN NOTE: BP 126/59, LOPRESSOR 12.5 MG TAB PO NOT GIVEN DBP BELOW 60
--- NOTE | 2016-12-06 21:52 | NUR ---
GPS/RN NOTE: SKIN CLEAR.
[2016-12-07] MEDS: AMLODIPINE BESYLATE 10 MG TABLET PO SCH (07:55)
[2016-12-07] MEDS: METOPROLOL TARTRATE 25 MG TABLET PO SCH ×2 (07:55→21:39)
[2016-12-07] MEDS: BENZTROPINE MESYLATE (1 MG) 1 MG TABLET PO SCH ×2 (07:55→17:00)
[2016-12-07] MEDS: PANTOPRAZOLE 40 MG TABLET.DR PO SCH (07:55)
[2016-12-07 08:00] VITALS: BP 139/87
--- NOTE | 2016-12-07 13:30 | NUR ---
CARA spoke with Hari Ferrara [phone], pt's brother, who was inquiring about an update. CARA will follow up with Hari when new information is available.
[2016-12-07 16:00] VITALS: BP 133/78
[2016-12-07 19:52] VITALS: BP 143/76
[2016-12-08 08:00] VITALS: BP 123/78
[2016-12-08] MEDS: METOPROLOL TARTRATE 25 MG TABLET PO SCH ×2 (08:34→20:35)
[2016-12-08] MEDS: BENZTROPINE MESYLATE (1 MG) 1 MG TABLET PO SCH ×2 (08:35→16:07)
[2016-12-08] MEDS: AMLODIPINE BESYLATE 10 MG TABLET PO SCH (08:35)
[2016-12-08] MEDS: PANTOPRAZOLE 40 MG TABLET.DR PO SCH (08:35)
--- NOTE | 2016-12-08 09:10 | NUR ---
CARA left a voicemail for Adra from Office of Public Guardian [phone] to follow up on Conservatorship status.
--- NOTE | 2016-12-08 11:27 | NUR ---
CARA spoke with Hari Gurrola [phone] , switch crew supervisor from Office of Public Guardian, and he provided the legal investigator's name Michelle Bassam and number [phone] to follow up with. At this point, no updated information has been provided as there is none.
--- NOTE | 2016-12-08 13:27 | NUR ---
GPS RN NOTE: DR DANIELLE SAWANT NOTIFIED OF CONSULT
[2016-12-08 16:00] VITALS: BP 121/62
--- NOTE | 2016-12-08 19:37 | NUR ---
GPS/RN NOTE: PAIENT AWAKE, ALERT, ORIENTED X3, CALM, NO NEED OR COMPLAINTS MADE AT THIS TIME.
[2016-12-08 19:55] VITALS: BP 146/82
[2016-12-08] MEDS ORDERED: DIVALPROEX SODIUM 500 MG TABLET.DR PO SCH (22:00)
[2016-12-09 08:00] VITALS: BP 145/88
[2016-12-09] MEDS: METOPROLOL TARTRATE 25 MG TABLET PO SCH ×3 (08:23→22:43)
[2016-12-09] MEDS: AMLODIPINE BESYLATE 10 MG TABLET PO SCH (08:23)
[2016-12-09] MEDS: BENZTROPINE MESYLATE (1 MG) 1 MG TABLET PO SCH ×2 (08:23→16:02)
[2016-12-09] MEDS: PANTOPRAZOLE 40 MG TABLET.DR PO SCH (08:23)
[2016-12-09 16:00] VITALS: BP 117/58
--- NOTE | 2016-12-09 16:16 | NUR ---
CARA received a voicemail from person investigator Michelle Banegas [phone] fax [phone] and she requested for additional information to be faxed (med list, 1422 copy, and recent progress note). CARA faxed all required paperwork and will follow up tomorrow.
--- NOTE | 2016-12-09 16:19 | NUR ---
CARA spoke with Hari Ferrara [phone], pt's brother, who called to get an update regarding the case.
--- NOTE | 2016-12-09 19:30 | NUR ---
RN NOTE; RECEIVED PT SITTING ON A CHAIR IN ACTIVITY ROOM W/ NO BEHAVIORAL OR PSYCH PROBLEM. BREATHING EVENLY. NO SOB.; NO DISTRESS. NO C/O PAIN OR DISCOMFORT. REMAINED UNDER CLOSE SUPERVISION FOR SAFETY. WILL CONT TO MONITOR.
--- NOTE | 2016-12-09 20:23 | NUR ---
HELD LOPRESSOR FOR LOW SBP OF 102. WILL CONT TO MONITOR
[2016-12-09 20:34] VITALS: BP 141/71
--- NOTE | 2016-12-10 06:33 | NUR ---
RN NOTE; PT IN BED AWAKE AND ALERT. NO PSYCH OR BEHAVIORAL ISSUES NOTED. NO ACUTE CHANGES DURING THE NIGHT. COMPLIANT W/ MEDS. NO C/O PAIN OR DISCOMFORT .ASSISTED W/ ADLS. NEEDS ATTENDED. WILL CONT TO MONITOR AND WILL ENDORSE TO AM SHIFT FOR GLEN.
[2016-12-10 08:00] VITALS: BP 127/72
[2016-12-10] MEDS: PANTOPRAZOLE 40 MG TABLET.DR PO SCH (08:15)
[2016-12-10] MEDS: BENZTROPINE MESYLATE (1 MG) 1 MG TABLET PO SCH ×2 (08:15→16:35)
[2016-12-10] MEDS: AMLODIPINE BESYLATE 10 MG TABLET PO SCH (08:16)
[2016-12-10] MEDS: METOPROLOL TARTRATE 25 MG TABLET PO SCH ×2 (08:16→19:57)
--- NOTE | 2016-12-10 13:00 | NUR ---
CARA left a voicemail for principal investigator from Public Guardian's office, Michelle Banegas [phone] fax [phone] requesting more information about the case. Will follow up
[2016-12-10 15:56] VITALS: BP 123/81
[2016-12-11 08:00] VITALS: BP 135/73
[2016-12-11] MEDS: PANTOPRAZOLE 40 MG TABLET.DR PO SCH (08:11)
[2016-12-11] MEDS: AMLODIPINE BESYLATE 10 MG TABLET PO SCH (08:11)
[2016-12-11] MEDS: BENZTROPINE MESYLATE (1 MG) 1 MG TABLET PO SCH ×2 (08:11→16:41)
[2016-12-11] MEDS: METOPROLOL TARTRATE 25 MG TABLET PO SCH ×2 (08:12→20:58)
[2016-12-11 16:00] VITALS: BP 127/54
[2016-12-11 20:00] VITALS: BP 140/70
[2016-12-12 08:00] VITALS: BP 151/94
[2016-12-12] MEDS: BENZTROPINE MESYLATE (1 MG) 1 MG TABLET PO SCH ×2 (08:19→18:18)
[2016-12-12] MEDS: PANTOPRAZOLE 40 MG TABLET.DR PO SCH (08:19)
[2016-12-12] MEDS: METOPROLOL TARTRATE 25 MG TABLET PO SCH ×2 (08:20→21:28)
[2016-12-12] MEDS: AMLODIPINE BESYLATE 10 MG TABLET PO SCH (08:20)
--- NOTE | 2016-12-12 11:09 | NUR ---
DR. DOMINGUEZ GAVE AN ORDER FOR THE DENIAL RIGHTS FOR ROOM SEARCH TO LOOK FOR THE MISSING CORDLESS PHONES.
[2016-12-12 16:00] VITALS: BP 118/72
[2016-12-12 20:00] VITALS: BP 129/72
[2016-12-13 08:00] VITALS: BP 133/95
[2016-12-13] MEDS: BENZTROPINE MESYLATE (1 MG) 1 MG TABLET PO SCH ×2 (08:38→17:04)
[2016-12-13] MEDS: AMLODIPINE BESYLATE 10 MG TABLET PO SCH (08:38)
[2016-12-13] MEDS: METOPROLOL TARTRATE 25 MG TABLET PO SCH ×2 (08:38→21:55)
[2016-12-13] MEDS: PANTOPRAZOLE 40 MG TABLET.DR PO SCH (08:39)
[2016-12-13 16:00] VITALS: BP 110/56
[2016-12-13 20:14] VITALS: BP 132/59
--- NOTE | 2016-12-14 01:20 | NUR ---
Pt has been blunted, loud, repetitive, mentally preoccupied, & with depressed mood but compliant & reirectable.
[2016-12-14 08:00] VITALS: BP 125/73
[2016-12-14] MEDS: BENZTROPINE MESYLATE (1 MG) 1 MG TABLET PO SCH ×2 (08:14→16:18)
[2016-12-14] MEDS: PANTOPRAZOLE 40 MG TABLET.DR PO SCH (08:15)
[2016-12-14] MEDS: AMLODIPINE BESYLATE 10 MG TABLET PO SCH (08:15)
[2016-12-14] MEDS: METOPROLOL TARTRATE 25 MG TABLET PO SCH ×2 (08:15→20:56)
--- NOTE | 2016-12-14 10:54 | NUR ---
CARA left a voicemail for Adra from Office of Public Guardian [phone] and for fugitive investigator from Public Guardian's office, Michelle Banegas [phone] fax [phone] to follow up on Conservatorship status. Will follow up again
[2016-12-14 16:00] VITALS: BP 145/61
--- NOTE | 2016-12-14 18:01 | NUR ---
CARA spoke with Adina from Office of Public Guardian [phone] who notified that paperwork has not been completed correctly, as a corrected form has been faxed but was not updated in the patient's chart before sending it to the court. Judy acknowledged that it was their mistake and that she would fax the corrected paper to the court immediately. CARA will follow up with dashboard developer from Public Guardian's office, Michelle Banegas [phone] fax [phone] to confirm that the case is reopened.
--- NOTE | 2016-12-14 20:09 | NUR ---
GPS/RN NOTE: PATIENT IS INSIDE THE DINING AREA, AWAKE, ALERT, AND SHOWS NO S/S OF ANY DISCOMFORT.
[2016-12-14 21:32] VITALS: BP 124/75
[2016-12-15] MEDS: AMLODIPINE BESYLATE 10 MG TABLET PO SCH (08:13)
[2016-12-15] MEDS: PANTOPRAZOLE 40 MG TABLET.DR PO SCH (08:13)
[2016-12-15] MEDS: METOPROLOL TARTRATE 25 MG TABLET PO SCH ×2 (08:13→20:52)
[2016-12-15] MEDS: BENZTROPINE MESYLATE (1 MG) 1 MG TABLET PO SCH ×2 (08:14→16:48)
[2016-12-15 08:30] VITALS: BP 121/83
[2016-12-15 16:00] VITALS: BP 106/70
--- NOTE | 2016-12-15 19:45 | NUR ---
GPS RN NOTE: PATIENT RESTING IN BED, NO ACUTE DISTRESS NOTED. BREATHING EVEN AND UNLABORED. PATIENT CALM AND COOPERATIVE AT THIS TIME. BED LOCKED AND IN LOWEST POSITION. WILL CONTINUE TO X9NACFC.
[2016-12-15 20:10] VITALS: BP 121/85
--- NOTE | 2016-12-16 03:15 | NUR ---
GPS RN NOTE: PATIENT SLEEPING IN BED. BREATHING EVEN AND UNLABORED, NO SOB NOTED. BED LOCKED AND IN LOWEST POSITION. WILL CONTINUE TO MONITOR.
--- NOTE | 2016-12-16 06:10 | NUR ---
GPS RN NOTE: PATIENT RESTING IN BED, NO ACUTE DISTRESS NOTED. BREATHING EVEN AND UNLABORED, NO SOB NOTED. NO PSYCH OR BEHAVIORAL ISSUES NOTED. NO ACUTE CHANGES DURING THE NIGHT. COMPLIANT W/ MEDS. BED LOCKED AND IN LOWEST POSITION. WILL ENDORSE TO DAY NURSE TO CONTINUE WITH PLAN OF CARE.
[2016-12-16 08:00] VITALS: BP 120/72
--- NOTE | 2016-12-16 09:05 | NUR ---
Per utilities service investigator Michelle Banegas's request ([phone] fax [phone]) from Public Guardian's office, SW faxed additional progress notes and updated medication list. SW will follow up.
--- NOTE | 2016-12-16 09:24 | NUR ---
Returned call from brother Luis A Melvin ([phone]) who left a voice message on assigned Sw's vmail. He stated that he just wanted to let her know that he got a call from the court and that they are working on setting a court date for the patient. He stated that he will call again if he has any updates.
[2016-12-16] MEDS: AMLODIPINE BESYLATE 10 MG TABLET PO SCH (09:25)
[2016-12-16] MEDS: METOPROLOL TARTRATE 25 MG TABLET PO SCH ×2 (09:27→21:10)
[2016-12-16] MEDS: BENZTROPINE MESYLATE (1 MG) 1 MG TABLET PO SCH ×2 (09:28→17:25)
[2016-12-16] MEDS: PANTOPRAZOLE 40 MG TABLET.DR PO SCH (09:35)
[2016-12-16 17:07] VITALS: BP 137/65
[2016-12-16] MEDS: CLOTRIMAZOLE 1% 15 GM TUBE TP SCH (17:26)
--- NOTE | 2016-12-16 19:10 | NUR ---
GPS/SANITIZER; RECEIVED PT REPORTS FROM THE DAY SHIFT RN FOR CONTINUITY OF CARE. PT AT THIS TIME IN BED AWAKE, ALERT VERBALLY RESPONSIVE. NO S//S OF DISTRESS NOR AGGRESSIONS. CONTINUE TO MONITOR.
[2016-12-16 20:05] VITALS: BP 155/60
--- NOTE | 2016-12-17 06:24 | NUR ---
GPS/EVALUATION MANAGER; SLEPT FOR 7. 75 HOURS LAST NIGHT. BREATHING NON LABORED. VOIDED AT THE BATHROOM . CONTINUE TO MONITOR. WILL ENDORSE TO THE DAY SHIFT NURSE.
[2016-12-17 08:00] VITALS: BP 127/78
[2016-12-17] MEDS: BENZTROPINE MESYLATE (1 MG) 1 MG TABLET PO SCH ×2 (08:11→16:08)
[2016-12-17] MEDS: METOPROLOL TARTRATE 25 MG TABLET PO SCH ×2 (08:12→21:18)
[2016-12-17] MEDS: AMLODIPINE BESYLATE 10 MG TABLET PO SCH (08:12)
[2016-12-17] MEDS: PANTOPRAZOLE 40 MG TABLET.DR PO SCH (08:13)
[2016-12-17] MEDS: CLOTRIMAZOLE 1% 15 GM TUBE TP SCH (08:28)
--- NOTE | 2016-12-17 11:41 | NUR ---
CARA left a voicemail for Michelle Banegas's request ([phone] fax [phone]), Public Guardian Office Salesforce Business Analyst to follow up on any updates. Will call again.
[2016-12-17 16:32] VITALS: BP 122/75
[2016-12-17 20:00] VITALS: BP 133/77
[2016-12-17] MEDS: ZOLPIDEM TARTRATE 5 MG TABLET PO PRN (21:32)
[2016-12-18 08:00] VITALS: BP 129/68
[2016-12-18] MEDS: BENZTROPINE MESYLATE (1 MG) 1 MG TABLET PO SCH ×2 (08:11→16:28)
[2016-12-18] MEDS: METOPROLOL TARTRATE 25 MG TABLET PO SCH ×2 (08:11→21:35)
[2016-12-18] MEDS: PANTOPRAZOLE 40 MG TABLET.DR PO SCH (08:11)
[2016-12-18] MEDS: AMLODIPINE BESYLATE 10 MG TABLET PO SCH (08:11)
[2016-12-18] MEDS: CLOTRIMAZOLE 1% 15 GM TUBE TP SCH (08:16)
--- NOTE | 2016-12-18 14:43 | NUR ---
Lisa left another voicemail for Michelle Banegas's request ([phone] fax [phone]), Public Guardian Office Hoop Machine Operator to follow up on any updates. Will call again.
[2016-12-18 16:00] VITALS: BP 131/72
[2016-12-18 20:11] VITALS: BP 127/50
[2016-12-18] MEDS: ZOLPIDEM TARTRATE 5 MG TABLET PO PRN (21:35)
[2016-12-19 08:00] VITALS: BP 141/85
[2016-12-19] MEDS: AMLODIPINE BESYLATE 10 MG TABLET PO SCH (08:33)
[2016-12-19] MEDS: BENZTROPINE MESYLATE (1 MG) 1 MG TABLET PO SCH ×2 (08:33→18:08)
[2016-12-19] MEDS: METOPROLOL TARTRATE 25 MG TABLET PO SCH ×2 (08:33→21:41)
[2016-12-19] MEDS: PANTOPRAZOLE 40 MG TABLET.DR PO SCH (08:34)
[2016-12-19] MEDS: CLOTRIMAZOLE 1% 15 GM TUBE TP SCH (08:35)
[2016-12-19 16:00] VITALS: BP 138/80
[2016-12-19 20:00] VITALS: BP 125/75
[2016-12-19] MEDS: ZOLPIDEM TARTRATE 5 MG TABLET PO PRN (21:41)
[2016-12-20 08:00] VITALS: BP 126/73
[2016-12-20] MEDS: BENZTROPINE MESYLATE (1 MG) 1 MG TABLET PO SCH ×2 (08:55→17:31)
[2016-12-20] MEDS: METOPROLOL TARTRATE 25 MG TABLET PO SCH ×2 (08:56→20:51)
[2016-12-20] MEDS: PANTOPRAZOLE 40 MG TABLET.DR PO SCH (08:56)
[2016-12-20] MEDS: AMLODIPINE BESYLATE 10 MG TABLET PO SCH (08:56)
[2016-12-20] MEDS: CLOTRIMAZOLE 1% 15 GM TUBE TP SCH (08:57)
[2016-12-20 16:00] VITALS: BP 134/74
--- NOTE | 2016-12-20 19:46 | NUR ---
GPS/RN NOTE: PATIENT AWAKE, ALERT, ORIENTED X3, AMBULATORY, NO COMPLAINTS MADE. NO APPARENT DISTRESS NOTED.
[2016-12-20 20:10] VITALS: BP 123/59
[2016-12-21 08:00] VITALS: BP 135/82
[2016-12-21] MEDS: BENZTROPINE MESYLATE (1 MG) 1 MG TABLET PO SCH ×2 (08:33→17:54)
[2016-12-21] MEDS: AMLODIPINE BESYLATE 10 MG TABLET PO SCH (08:33)
[2016-12-21] MEDS: PANTOPRAZOLE 40 MG TABLET.DR PO SCH (08:33)
[2016-12-21] MEDS: METOPROLOL TARTRATE 25 MG TABLET PO SCH ×2 (08:34→20:51)
[2016-12-21] MEDS: CLOTRIMAZOLE 1% 15 GM TUBE TP SCH (08:35)
--- NOTE | 2016-12-21 11:23 | NUR ---
CARA spoke with Michelle Banegas's request ([phone] fax [phone]), the public guardian's office internal investigator for the case and CARA was notified that pt's court hearing for LPS conservatorship is set for December 31, 2016 at 8:30 AM. CARA notified BG Martinez attendance secretary.
[2016-12-21 16:00] VITALS: BP 145/73
--- NOTE | 2016-12-21 19:30 | NUR ---
GPS RN NOTE, RECEIVED PATIENT AWAKE AND IN BED, NO S/S OR COMPLAINTS OF PAIN AT THIS TIME. PATIENT IS DISPLAYING NO S/S OF APPARENT DISTRESS AT THIS TIME. PATIENT BREATHING IS UNLABORED WITH EQUAL RISE AND FALL OF THE CHEST. PATIENT IS ALERT AND ORIENTED X 3 ON ROOM AIR WITH A SPO2 OF 94%. PATIENT IS MED COMPLIANT, DISORGANIZED, DISORIENTED, AND NEEDS REORIENTATION. PATIENT DENIES SUICIDE IDEATIONS AND HOMICIDAL IDEATIONS AT THIS TIME. PATIENT ASSISTED WITH TURNING AND REPOSITIONING Q2HR AND PRN FOR COMFORT AND CIRCULATION. PATIENT HAS NO NEEDS AT THIS TIME. PATIENT EDUCATED ON THE USE OF THE CALL HOBSON. PATIENT BED SIDE RAILS ARE UP X2 FOR SAFETY, BED IS LOCKED AND LOW WILL CONTINUE TO MONITOR AND MAINTAIN SAFETY.
[2016-12-21 20:00] VITALS: BP 120/65
[2016-12-21 20:01] VITALS: BP 120/65
[2016-12-21] MEDS: risperiDONE 1 MG TABLET PO SCH (20:47)
[2016-12-22] MEDS: BENZTROPINE MESYLATE (1 MG) 1 MG TABLET PO SCH ×2 (08:10→16:44)
[2016-12-22] MEDS: PANTOPRAZOLE 40 MG TABLET.DR PO SCH (08:11)
[2016-12-22] MEDS: risperiDONE 1 MG TABLET PO SCH ×2 (08:11→16:44)
[2016-12-22] MEDS: AMLODIPINE BESYLATE 10 MG TABLET PO SCH (08:11)
[2016-12-22] MEDS: METOPROLOL TARTRATE 25 MG TABLET PO SCH ×2 (08:11→21:33)
[2016-12-22] MEDS: CLOTRIMAZOLE 1% 15 GM TUBE TP SCH (08:12)
[2016-12-22 08:41] VITALS: BP 123/78
--- NOTE | 2016-12-22 13:37 | NUR ---
CARA left a voicemail for Michelle Banegas's request ([phone] fax [phone]), the public guardian's office arson investigator to confirm the date of the hearing.
[2016-12-22 16:14] VITALS: BP 125/78
[2016-12-22 21:52] VITALS: BP 148/79
--- NOTE | 2016-12-22 23:01 | NUR ---
patient 's Rights restored. Addendum: 12/22/16 at 2304 by SATINDER MORENO RN Amended: Links added.
[2016-12-23] MEDS: TEMAZEPAM 7.5 MG CAPSULE PO PRN ×2 (00:12→23:21)
[2016-12-23 08:00] VITALS: BP 123/73
[2016-12-23] MEDS: PANTOPRAZOLE 40 MG TABLET.DR PO SCH (08:13)
[2016-12-23] MEDS: AMLODIPINE BESYLATE 10 MG TABLET PO SCH (08:13)
[2016-12-23] MEDS: risperiDONE 1 MG TABLET PO SCH ×2 (08:13→16:37)
[2016-12-23] MEDS: BENZTROPINE MESYLATE (1 MG) 1 MG TABLET PO SCH ×2 (08:13→16:37)
[2016-12-23] MEDS: METOPROLOL TARTRATE 25 MG TABLET PO SCH ×2 (08:14→21:49)
[2016-12-23] MEDS: CLOTRIMAZOLE 1% 15 GM TUBE TP SCH (08:22)
--- NOTE | 2016-12-23 13:36 | NUR ---
SW left a voicemail for Adra from Office of Public Guardian [phone] date. Will follow up again.
--- NOTE | 2016-12-23 14:26 | NUR ---
CARA left a voicemail again for Michelle Banegas's request ([phone] fax [phone]), the public guardian's office investigator narcotics to confirm the date of the hearing.
[2016-12-23 16:00] VITALS: BP 138/76
[2016-12-23 20:20] VITALS: BP 131/57
[2016-12-23 21:50] VITALS: BP 131/68
[2016-12-24 08:00] VITALS: BP 153/84
[2016-12-24] MEDS: risperiDONE 1 MG TABLET PO SCH ×2 (08:16→16:28)
[2016-12-24] MEDS: PANTOPRAZOLE 40 MG TABLET.DR PO SCH (08:16)
[2016-12-24] MEDS: CLOTRIMAZOLE 1% 15 GM TUBE TP SCH (08:16)
[2016-12-24] MEDS: AMLODIPINE BESYLATE 10 MG TABLET PO SCH (08:16)
[2016-12-24] MEDS: BENZTROPINE MESYLATE (1 MG) 1 MG TABLET PO SCH ×2 (08:16→16:28)
[2016-12-24] MEDS: METOPROLOL TARTRATE 25 MG TABLET PO SCH ×2 (08:17→20:38)
[2016-12-24 16:00] VITALS: BP 131/77
--- NOTE | 2016-12-24 16:03 | NUR ---
CARA left a voicemail again for Michelle Banegas's request ([phone] fax [phone]), the public guardian's office title investigator to confirm the date of the hearing.
--- NOTE | 2016-12-24 16:09 | NUR ---
CARA spoke with Alterations Supervisor from the Office Of Public Guardian, Arik [phone] and it is confirmed that the hearing is on December 31, 2016 at 8:30AM.
[2016-12-24 20:00] VITALS: BP_SYST 148; BP_DIAS 80; BP_DIAS 84
[2016-12-25 08:00] VITALS: BP 128/78
[2016-12-25] MEDS: PANTOPRAZOLE 40 MG TABLET.DR PO SCH (08:21)
[2016-12-25] MEDS: BENZTROPINE MESYLATE (1 MG) 1 MG TABLET PO SCH ×2 (08:21→16:29)
[2016-12-25] MEDS: risperiDONE 1 MG TABLET PO SCH ×2 (08:21→16:30)
[2016-12-25] MEDS: AMLODIPINE BESYLATE 10 MG TABLET PO SCH (08:22)
[2016-12-25] MEDS: METOPROLOL TARTRATE 25 MG TABLET PO SCH ×2 (08:22→21:16)
--- NOTE | 2016-12-25 09:46 | NUR ---
SW referred the patient to [facility] ([facility] [address] [place] [address] . Will follow up
[2016-12-25] MEDS: CLOTRIMAZOLE 1% 15 GM TUBE TP SCH (10:10)
[2016-12-25 16:00] VITALS: BP 102/63
[2016-12-25 20:00] VITALS: BP 119/73
[2016-12-25] MEDS: ZOLPIDEM TARTRATE 5 MG TABLET PO PRN (22:11)
[2016-12-26] MEDS: BENZTROPINE MESYLATE (1 MG) 1 MG TABLET PO SCH ×2 (08:20→16:40)
[2016-12-26] MEDS: risperiDONE 1 MG TABLET PO SCH ×2 (08:21→16:40)
[2016-12-26] MEDS: PANTOPRAZOLE 40 MG TABLET.DR PO SCH (08:21)
[2016-12-26] MEDS: METOPROLOL TARTRATE 25 MG TABLET PO SCH ×2 (08:22→21:38)
[2016-12-26] MEDS: AMLODIPINE BESYLATE 10 MG TABLET PO SCH (08:22)
[2016-12-26] MEDS: CLOTRIMAZOLE 1% 15 GM TUBE TP SCH (08:23)
[2016-12-26 16:00] VITALS: BP 104/75
[2016-12-26 20:00] VITALS: BP 129/81
[2016-12-27 08:00] VITALS: BP 102/73
[2016-12-27] MEDS: PANTOPRAZOLE 40 MG TABLET.DR PO SCH (08:28)
[2016-12-27] MEDS: risperiDONE 1 MG TABLET PO SCH ×2 (08:28→17:21)
[2016-12-27] MEDS: BENZTROPINE MESYLATE (1 MG) 1 MG TABLET PO SCH ×2 (08:28→17:21)
[2016-12-27] MEDS: AMLODIPINE BESYLATE 10 MG TABLET PO SCH (08:31)
[2016-12-27] MEDS: METOPROLOL TARTRATE 25 MG TABLET PO SCH ×2 (08:31→21:42)
[2016-12-27] MEDS: CLOTRIMAZOLE 1% 15 GM TUBE TP SCH (08:32)
[2016-12-27 16:00] VITALS: BP 146/84
[2016-12-27 20:02] VITALS: BP 157/78
[2016-12-28 08:00] VITALS: BP 132/80
[2016-12-28] MEDS: BENZTROPINE MESYLATE (1 MG) 1 MG TABLET PO SCH ×2 (08:18→17:28)
[2016-12-28] MEDS: PANTOPRAZOLE 40 MG TABLET.DR PO SCH (08:19)
[2016-12-28] MEDS: risperiDONE 1 MG TABLET PO SCH ×2 (08:19→17:28)
[2016-12-28] MEDS: METOPROLOL TARTRATE 25 MG TABLET PO SCH ×2 (08:21→21:36)
[2016-12-28] MEDS: AMLODIPINE BESYLATE 10 MG TABLET PO SCH (08:22)
[2016-12-28] MEDS: CLOTRIMAZOLE 1% 15 GM TUBE TP SCH (08:22)
--- NOTE | 2016-12-28 14:18 | NUR ---
Pt. was referred to [facility] [address] [place] [address] . Will follow up Addendum: 12/29/16 at 0948 by RODRÍGUEZ MARROQUIN November from [facility] notified that pt. can be admitted but will need to come assess the patient today 12/29/16. Addendum: 12/29/16 at 1150 by RODRÍGUEZ MARROQUIN November (network project manager) and Geneva (insurance administrator) from [facility] [address] [place] [address] . came to assess the patient and they are willing to accept.
[2016-12-28 16:25] VITALS: BP 146/84
[2016-12-28 19:40] VITALS: BP_SYST 134; BP_SYST 159; BP_DIAS 60; BP_DIAS 78
[2016-12-29] MEDS: BENZTROPINE MESYLATE (1 MG) 1 MG TABLET PO SCH ×2 (08:10→16:15)
[2016-12-29] MEDS: risperiDONE 1 MG TABLET PO SCH ×2 (08:10→16:15)
[2016-12-29] MEDS: AMLODIPINE BESYLATE 10 MG TABLET PO SCH (08:10)
[2016-12-29] MEDS: METOPROLOL TARTRATE 25 MG TABLET PO SCH ×2 (08:10→21:25)
[2016-12-29] MEDS: PANTOPRAZOLE 40 MG TABLET.DR PO SCH (08:10)
[2016-12-29 08:30] VITALS: BP 132/81
[2016-12-29] MEDS: CLOTRIMAZOLE 1% 15 GM TUBE TP SCH (09:50)
[2016-12-29 16:04] VITALS: BP 129/71
[2016-12-29 20:03] VITALS: BP 119/74
[2016-12-30] MEDS: AMLODIPINE BESYLATE 10 MG TABLET PO SCH (08:09)
[2016-12-30] MEDS: CLOTRIMAZOLE 1% 15 GM TUBE TP SCH (08:10)
[2016-12-30] MEDS: BENZTROPINE MESYLATE (1 MG) 1 MG TABLET PO SCH ×2 (08:10→16:31)
[2016-12-30] MEDS: METOPROLOL TARTRATE 25 MG TABLET PO SCH ×2 (08:10→20:28)
[2016-12-30] MEDS: risperiDONE 1 MG TABLET PO SCH ×2 (08:10→16:31)
[2016-12-30] MEDS: PANTOPRAZOLE 40 MG TABLET.DR PO SCH (08:10)
[2016-12-30 08:32] VITALS: BP 127/67
[2016-12-30 15:59] VITALS: BP 128/53
--- NOTE | 2016-12-30 19:30 | NUR ---
GPS RN INITIAL NOTE RECEIVED REPORT FROM LISSET BARBOSA. PT IN ROOM IN BED ASLEEP. EASILY AROUSABLE. PER DAY NURSE PT SLEEPS MOST OF THE DAY, BUT GETS UP A COUPLE TIMES TO WALK AROUND UNIT THEN RETURNS TO BED TO SLEEP. WILL CONTINUE TO MONITOR.
[2016-12-30 20:30] VITALS: BP 141/70
[2016-12-31] MEDS: risperiDONE 1 MG TABLET PO SCH ×2 (07:36→16:02)
[2016-12-31] MEDS: PANTOPRAZOLE 40 MG TABLET.DR PO SCH (07:36)
[2016-12-31] MEDS: AMLODIPINE BESYLATE 10 MG TABLET PO SCH (07:36)
[2016-12-31] MEDS: BENZTROPINE MESYLATE (1 MG) 1 MG TABLET PO SCH ×2 (07:37→16:02)
[2016-12-31] MEDS: METOPROLOL TARTRATE 25 MG TABLET PO SCH ×2 (07:37→21:05)
[2016-12-31 08:00] VITALS: BP 136/79
[2016-12-31] MEDS: CLOTRIMAZOLE 1% 15 GM TUBE TP SCH (09:00)
--- NOTE | 2016-12-31 09:18 | NUR ---
GPS/RN PATIENT OFF UNIT FOR COURT HEARING, UNABLE TO ADMINISTER LOTRIMIN CREAM AT THIS TIME.
--- NOTE | 2016-12-31 13:27 | NUR ---
RN-CO: Fernando Melvin is back from court hearing regarding his Conservatorship. Court ordered "Hari" as his conservator.
--- NOTE | 2016-12-31 15:21 | NUR ---
floor service worker spring spoke to Geneva (it administrator) from [facility] [address] [place] [address] to inform her that patient will not be discharged today and that the assigned high school social science teacher will follow-up with her tomorrow..
[2016-12-31 16:00] VITALS: BP_SYST 134; BP_SYST 141; BP_DIAS 73; BP_DIAS 88
[2016-12-31 20:00] VITALS: BP 137/68
[2016-12-31] MEDS ORDERED: INVEGA 156 MG IM ONE (21:00)
[2016-12-31] MEDS: ZOLPIDEM TARTRATE 5 MG TABLET PO PRN (22:05)
[2017-01-01 07:58] VITALS: BP 133/84
[2017-01-01 08:00] VITALS: BP 133/84
[2017-01-01 08:51] VITALS: BP 133/84
[2017-01-01] MEDS: PANTOPRAZOLE 40 MG TABLET.DR PO SCH (08:51)
[2017-01-01] MEDS: AMLODIPINE BESYLATE 10 MG TABLET PO SCH (08:51)
[2017-01-01] MEDS: METOPROLOL TARTRATE 25 MG TABLET PO SCH (08:51)
[2017-01-01] MEDS: risperiDONE 1 MG TABLET PO SCH (08:51)
[2017-01-01] MEDS: BENZTROPINE MESYLATE (1 MG) 1 MG TABLET PO SCH (08:51)
[2017-01-01] MEDS: CLOTRIMAZOLE 1% 15 GM TUBE TP SCH (08:52)
[2017-01-01] MEDS ORDERED: clonazePAM 0.5 MG TABLET PO SCH (09:00)
[2017-01-01] MEDS ORDERED: LORAZEPAM 1 MG TABLET PO ONE (09:30)
--- NOTE | 2017-01-01 13:49 | NUR ---
Discharge note: Pt. will discharge to [facility] [address] [place], [place] [id number] today. Pt's conservator/brother, Luis A Melvin ([phone]) is notified and agrees with the plan. Pt. not so happy about not being able to return home, but understands that he does not have an option at this time. Pt. is calm and cooperative, denies suicidal/homicidal ideations. Discharge instructions provided to the accepting facility and discharge paperwork is signed.
[2017-01-01] MEDS ORDERED: LORAZEPAM 0.5 MG TABLET PO PRN (14:30)
--- NOTE | 2017-01-01 15:07 | NUR ---
GPS/RN PT D/C TO [facility]. REPORT GIVEN TO ROSALES BARBOSA. SKIN CLEAR ON D/C AND MRSA SWAB TAKEN PER HOSPITAL POLICY. BELONGINS, MEDICATIONS RETURNED. EXIT CARE INSTRUCTIONS GIVEN AND UNDERSTOOD, MED. LIST PROVIDED. PT AMBULATORY ,VSS, NO SI OR HI AT THE TIME OF D/C. PT LEFT VIA AMBULANCE
== END 2017-01-01 15:00 | DRG 885 ==
LOC: ER 17:33 → GPS 17:54
PROVIDERS: ADMIT Psychiatry & Neurology Psychiatry; ATTEND Internal Medicine
DX: F20.0 Paranoid schizophrenia (principal); F02.80 Dementia in other diseases classified elsewhere, unspecified severity, without behavioral disturbance, psychotic disturbance, mood disturbance, and anxiety; F79 Unspecified intellectual disabilities; F29 Unspecified psychosis not due to a substance or known physiological condition; I10 Essential (primary) hypertension; D64.9 Anemia, unspecified; Z91.14 Patient's other noncompliance with medication regimen; Z91.19 Patient's noncompliance with other medical treatment and regimen; G30.9 Alzheimer's disease, unspecified; B35.1 Tinea unguium; B35.3 Tinea pedis; Z87.891 Personal history of nicotine dependence
CPT/HCPCS: 36415; 70450-TC; 80048-TC; 80053-TC; 80061-TC; 80076-TC; 80305; 81000-TC; 83735-TC; 84100-TC; 85025-TC; 87081-TC; 93307-TC; A4606; G0480; G6039-TC; Z7610

== ENCOUNTER 2018-02-07 15:37 | Inpatient (IN) | payer MEDICARE, MEDICAID ==
[~2018-02-07] VITALS: Ht 182.9 cm; Wt 94.3 kg
[~2018-02-07 15:37] MED LIST changes: -AMLO10TA2 PO; +AMLO10TA6 PO; -AZEL137S7 NS; -DICL2.5D LEFTEYE; -IPRA12.9 IH; -METO-302 PO; +METO-356 PO; -MOXI3DRO LEFTEYE; -PRED5DRO7 LEFTEYE; -RISP0.2515 PO; -RISP37.5 IM
--- NOTE | 2018-02-07 15:50 | NUR ---
RECIEVED PATIENT TO ED BED 18, PT WAS BIB [facility] FROM HOME ON 5150 HOLD FOR DTS AND GD. NAD VSS RR EVEN AND UNLABORED. PENDING ER MD LEE
--- NOTE | 2018-02-07 16:00 | NUR ---
CALLED NURSE SUP FOR GPS BED
[2018-02-07 16:03] LABS: BASOPHILS % (AUTO) 0.3 % (0.0-2.0); HEMATOCRIT 39 % (39-51); HEMOGLOBIN 13.2 g/dL (13.5-17.5); LYMPHOCYTES # (AUTO) 1.1 /CMM (0.8-4.8); LYMPHOCYTES % (AUTO) 19.3 % (20.0-44.0); MEAN CORPUSCULAR HGB CONC 34 g/dl (31.0-36.0); MEAN CORPUSCULAR VOLUME 81 fL (80-96); MONOCYTES # (AUTO) 0.4 /CMM (0.1-1.30); NEUTROPHILS # (AUTO) 3.9 /CMM (1.8-8.9); NEUTROPHILS % (AUTO) 71.4 % (43.0-81.0); PLATELET COUNT (AUTO) 195 /CMM (150-450); RDW COEFFICIENT OF VARIATION 13.4 (11.5-15.0); RED BLOOD CELL COUNT(AUTO) 4.82 MIL/uL (4.5-6.0); WHITE BLOOD COUNT (AUTO) 5.5 K/uL (4.3-11.0)
--- NOTE | 2018-02-07 16:03 | NUR ---
EKG IN PROGRESS AT BEDSIDE.
[2018-02-07] MEDS ORDERED: RISP0.253 PO ×2 (16:05)
[2018-02-07] MEDS ORDERED: PANT40TA4 PO (16:05)
[2018-02-07 16:15] LABS: CALCIUM, SERUM 8.9 mg/dL (8.5-10.1); CARBON DIOXIDE 28 mmol/L (21-32); CHLORIDE 104 mmol/L (98-107); CREATININE 1.2 mg/dL (0.6-1.3); GLUCOSE 89 mg/dL (74-106); POTASSIUM 3.7 mmol/L (3.5-5.1); SODIUM SERUM 140 mmol/L (136-145); UREA NITROGEN, BLOOD 17 mg/dL (7-18)
[2018-02-07] MEDS ORDERED: RISP50DI IM (16:17)
[2018-02-07] MEDS ORDERED: IPRA12.9 IH (16:17)
[2018-02-07 16:21] LABS: ACETAMINOPHEN 0 ug/ml (10-30); ALANINE AMINOTRANSFERASE 21 U/L (12-78); ALBUMIN 3.2 g/dL (3.4-5.0); ALCOHOL, BLOOD < 3 mg/dL (0-0); ALKALINE PHOSPHATASE 86 U/L (46-116); ASPARTATE AMINOTRANSFERASE 18 U/L (15-37); BILIRUBIN,DIRECT 0.1 mg/dL (0.0-0.2); BILIRUBIN,TOTAL 0.3 mg/dL (0.2-1.0); SALICYLATE 1.6 mg/dL (2.8-20.0); TOTAL PROTEIN, SERUM 7.2 g/dL (6.4-8.2)
[2018-02-07 17:03] LABS: APPEARANCE,URINE CLEAR (CLEAR); BILIRUBIN,URINE NEGATIVE (NEGATIVE); BLOOD, URINE NEGATIVE Ery/uL (NEGATIVE); COLOR,URINE YELLOW (YELLOW); KETONES,URINE NEGATIVE (NEGATIVE); LEUKOCYTE ESTERASE ,URINE NEGATIVE (NEGATIVE); NITRITE, URINE NEGATIVE (NEGATIVE); PH,URINE 6.5 (5.0-8.0); PROTEIN,URINE NEGATIVE (NEGATIVE); UGLUCOSE NEGATIVE (NEGATIVE); UROBILINOGEN,URINE 0.2 EU/dL (0.2)
--- NOTE | 2018-02-07 17:45 | NUR ---
REPORT GIVEN TO SAMY BARBOSA FOR CONTINUITY OF CARE IN ROSAS PSYCH
--- NOTE | 2018-02-07 17:59 | NUR ---
TRANSFERRED TO FLOOR IN STABLE CONDITION
[2018-02-07] MEDS ORDERED: OLANZAPINE 10 MG VIAL IM ONE ×2 (18:00→18:03)
--- NOTE | 2018-02-07 18:05 | NUR ---
RSOITA VINES AT THIS TIME
[2018-02-07] MEDS ORDERED: LORAZEPAM 0.5 MG TABLET PO PRN (18:30)
[2018-02-07] MEDS ORDERED: ACETAMINOPHEN 325 MG TABLET PO PRN (18:30)
[2018-02-07] MEDS ORDERED: MAG HYDROX/AL HYDROX/SIMETH 30 ML UDC PO PRN (18:30)
[2018-02-07] MEDS ORDERED: MAGNESIUM HYDROXIDE 30 ML UDC PO PRN (18:30)
[2018-02-07] MEDS ORDERED: IPRATROPIUM NEB FS 0.5 MG/2.5 ML AMPUL.NEB NEB PRN (19:00)
[2018-02-07] MEDS: TEMAZEPAM 7.5 MG CAPSULE PO PRN (21:26)
[2018-02-08 07:27] LABS: CHOLESTEROL 174 mg/dL (<200); HDL CHOLESTEROL 48 mg/dL (40-60); LDL 113 mg/dL (0-99); TRIGLYCERIDES 114 mg/dL (30-150)
[2018-02-08 07:29] LABS: ALANINE AMINOTRANSFERASE 24 U/L (12-78); ALBUMIN 2.9 g/dL (3.4-5.0); ALKALINE PHOSPHATASE 80 U/L (46-116); ASPARTATE AMINOTRANSFERASE 22 U/L (15-37); BILIRUBIN,TOTAL 0.3 mg/dL (0.2-1.0); CALCIUM, SERUM 8.1 mg/dL (8.5-10.1); CARBON DIOXIDE 25 mmol/L (21-32); CHLORIDE 105 mmol/L (98-107); GLUCOSE 110 mg/dL (74-106); POTASSIUM 3.8 mmol/L (3.5-5.1); SODIUM SERUM 139 mmol/L (136-145); TOTAL PROTEIN, SERUM 6.4 g/dL (6.4-8.2); UREA NITROGEN, BLOOD 16 mg/dL (7-18)
[2018-02-08 08:12] VITALS: BP 146/80
[2018-02-08] MEDS ORDERED: METOPROLOL SUCCINATE 25 MG TAB.SR.24H PO SCH (09:00)
[2018-02-08] MEDS: AMLODIPINE BESYLATE 10 MG TABLET PO SCH (09:22)
[2018-02-08] MEDS: PANTOPRAZOLE 40 MG TABLET.DR PO SCH (09:23)
--- NOTE | 2018-02-08 10:30 | NUR ---
SPOKE TO BROTHER OMER TO GET PT'S PHARMACY # TO CLARIFY METOPROLOL
[2018-02-08 16:34] VITALS: BP 137/64
--- NOTE | 2018-02-08 18:00 | NUR ---
VERY AGITATED WHEN TALKING TO PT. ABOUT BROTHER.
[2018-02-08 20:30] VITALS: BP 156/73
[2018-02-08] MEDS: risperiDONE 1 MG TABLET PO SCH (20:39)
[2018-02-08] MEDS: TEMAZEPAM 7.5 MG CAPSULE PO PRN (20:42)
--- NOTE | 2018-02-08 20:59 | NUR ---
TEMAZEPAM 15 MG CAP PO GIVEN FOR SLEEP.
[2018-02-09 08:26] VITALS: BP 134/77
[2018-02-09] MEDS: risperiDONE 1 MG TABLET PO SCH ×2 (08:50→17:24)
[2018-02-09] MEDS: AMLODIPINE BESYLATE 10 MG TABLET PO SCH (08:51)
[2018-02-09] MEDS: PANTOPRAZOLE 40 MG TABLET.DR PO SCH (08:51)
[2018-02-09] MEDS: METOPROLOL TARTRATE 25 MG TABLET PO SCH ×2 (08:52→21:39)
--- NOTE | 2018-02-09 10:00 | NUR ---
DR. PARIKH IN TO SEE PT.
[2018-02-09 15:56] VITALS: BP 136/68
--- NOTE | 2018-02-09 17:56 | NUR ---
VERY SLEEPY IN AFTERNOON,BUT AWAKE NOW AND IN DINING RM.
--- NOTE | 2018-02-09 19:30 | NUR ---
GPS RN NOTE, RECEIVED PATIENT AWAKE AND IN BED, NO S/S OR COMPLAINTS OF PAIN AT THIS TIME. PATIENT DISPLAYING NO S/S OF APPARENT DISTRESS AT THIS TIME. PATIENT BREATHING IS UNLABORED WITH EQUAL RISE AND FALL OF THE CHEST. PATIENT ALERT AND ORIENTED X 2-3 WITH A SPO2 95%. PATIENT IS COMPLIANT WITH MEDS , DISORGANIZED, ANXIOUS, COOPERATIVE, NEEDS REORIENTATION. PATIENT DENIES SUICIDE IDEATIONS AND HOMICIDAL IDEATIONS AT THIS TIME. PATIENT ASSISTED WITH TURNING AND REPOSITIONING Q2HR AND PRN FOR COMFORT AND CIRCULATION. PATIENT HAS NO NEEDS AT THIS TIME. PATIENT EDUCATED ON THE USE OF THE CALL HOBSON. PATIENT BED SIDE RAILS UP X2 FOR SAFETY, BED IS LOCKED AND LOW WILL CONTINUE TO MONITOR AND MAINTAIN AND MAINTAIN SAFETY.
[2018-02-09 20:43] VITALS: BP 129/67
[2018-02-10] MEDS: PANTOPRAZOLE 40 MG TABLET.DR PO SCH (08:14)
[2018-02-10] MEDS: METOPROLOL TARTRATE 25 MG TABLET PO SCH ×2 (08:15→20:24)
[2018-02-10] MEDS: AMLODIPINE BESYLATE 10 MG TABLET PO SCH (08:15)
[2018-02-10] MEDS: risperiDONE 1 MG TABLET PO SCH ×2 (08:15→16:15)
--- NOTE | 2018-02-10 13:09 | NUR ---
Initial Discharge Plan: Pt resides at [address] [place] [address]; by himself. Upon discharge pt would like to return home. CARA contacted pts brother, Hari Melvin who is his conservator for collateral information. CARA requested appropriate conservator paperwork. Pts brother agreed to bring in a copy of conservator paperwork, "when I come see my brother today." CARA will follow up to ensure pt is safely and adequately discharged.
[2018-02-10 16:00] VITALS: BP 125/76
[2018-02-10 20:00] VITALS: BP 153/89
--- NOTE | 2018-02-10 20:00 | NUR ---
GPS RN NOTE, RECEIVED PATIENT AWAKE AND IN BED, NO S/S OR COMPLAINTS OF PAIN AT THIS TIME. PATIENT DISPLAYING NO S/S OF APPARENT DISTRESS AT THIS TIME. PATIENT BREATHING IS UNLABORED WITH EQUAL RISE AND FALL OF THE CHEST. PATIENT ALERT AND ORIENTED X 2-3 WITH A SPO2 95%. PATIENT BED SIDE RAILS UP X2 FOR SAFETY, BED IS LOCKED AND LOW WILL CONTINUE TO MONITOR AND MAINTAIN AND MAINTAIN SAFETY.
--- NOTE | 2018-02-11 06:49 | NUR ---
RN CLOSING NOTES NO SIGNIFICANT CHANGE IN PTS CONDITION OVER SHIFT. ALL MEDS GIVEN, ALL NEEDS ATTENDED. WILL ENDORSE TO AM RN.
[2018-02-11] MEDS: PANTOPRAZOLE 40 MG TABLET.DR PO SCH (07:45)
[2018-02-11 08:34] VITALS: BP 161/78
[2018-02-11] MEDS: risperiDONE 1 MG TABLET PO SCH ×2 (08:39→16:35)
[2018-02-11] MEDS: AMLODIPINE BESYLATE 10 MG TABLET PO SCH (08:39)
[2018-02-11] MEDS: METOPROLOL TARTRATE 25 MG TABLET PO SCH ×2 (08:40→20:49)
--- NOTE | 2018-02-11 11:13 | NUR ---
SW spoke to pts brother Hari Melvin who apologized for not bringing paperwork (conservator) in and agreed to "drop it off with the nurse today." Pts brother agreed that once pt is stable and ready to discharge, he can return home ([address] [facility] [address]). Hari also reported having several caretakers for his brother to care for his basic needs at home. Pts physicians: Dr. Maine Scott (psychiatrist), [address] [facility] [address]; and Dr. Sara Tejada (extras casting director), [address] [place] [address]; . SW will follow up to ensure pt is safely and adequately discharged.
[2018-02-11 16:00] VITALS: BP 116/54
[2018-02-11 20:00] VITALS: BP 166/74
--- NOTE | 2018-02-11 22:17 | NUR ---
OFFERED SLEEPING PILL TEMAZEPAM, PATIENT REFUSED.
[2018-02-12 08:00] VITALS: BP 153/73
[2018-02-12] MEDS: METOPROLOL TARTRATE 25 MG TABLET PO SCH ×2 (08:15→20:39)
[2018-02-12] MEDS: AMLODIPINE BESYLATE 10 MG TABLET PO SCH (08:15)
[2018-02-12] MEDS: PANTOPRAZOLE 40 MG TABLET.DR PO SCH (08:15)
[2018-02-12] MEDS: risperiDONE 1 MG TABLET PO SCH ×2 (08:15→17:09)
[2018-02-12] MEDS ORDERED: hydrALAZINE HCL 25 MG TABLET PO PRN (14:30)
[2018-02-12 16:00] VITALS: BP 129/77
[2018-02-12 20:00] VITALS: BP 150/86
--- NOTE | 2018-02-12 23:50 | NUR ---
Pt has been with flat affect & hypoverbal but compliant & redirectable.
[2018-02-13 08:00] VITALS: BP 141/78
[2018-02-13] MEDS: PANTOPRAZOLE 40 MG TABLET.DR PO SCH (09:04)
[2018-02-13] MEDS: risperiDONE 1 MG TABLET PO SCH ×2 (09:04→17:59)
[2018-02-13] MEDS: METOPROLOL TARTRATE 25 MG TABLET PO SCH ×2 (09:05→20:37)
[2018-02-13] MEDS: AMLODIPINE BESYLATE 10 MG TABLET PO SCH (09:05)
--- NOTE | 2018-02-13 10:19 | NUR ---
GPS/RN PT REFUSED AM MEDS AND BLOOD DRAW IN AM . OFFERED X3. COMMUNICATED VIA AMRIT LOPEZ
[2018-02-13 16:00] VITALS: BP 141/75
--- NOTE | 2018-02-13 19:57 | NUR ---
PATIENT STATED THAT HE DOES NOT KNOW THE TIME, BUT HIS NAME AND PLACE, HE KNOWS THAT HE IS AT [facility] WHEN ASKED Addendum: 02/13/18 at 2007 by PATRICA MONTES RN ABOVE ASSESSMENT INTENDED FOR ANOTHER PATIENT. USER ERROR.
[2018-02-13 20:00] VITALS: BP 137/60
[2018-02-14 08:08] VITALS: BP 140/88
[2018-02-14] MEDS: AMLODIPINE BESYLATE 10 MG TABLET PO SCH (08:55)
[2018-02-14] MEDS: risperiDONE 1 MG TABLET PO SCH ×2 (08:55→17:08)
[2018-02-14] MEDS: PANTOPRAZOLE 40 MG TABLET.DR PO SCH (08:55)
[2018-02-14] MEDS: METOPROLOL TARTRATE 25 MG TABLET PO SCH ×2 (08:56→20:59)
[2018-02-14 16:00] VITALS: BP 165/96
[2018-02-14 20:12] VITALS: BP 128/68
--- NOTE | 2018-02-15 06:18 | NUR ---
GPS/RN PATIENT STILL SLEEPING, EASILY AROUSABLE, NO SIGNS OF DISTRESS NOTE, NO BEHAVIOR PROBLEM THE WHOLE SHIFT. ALL NEEDS ATTENDED AT THIS TIME. WILL CONTINUE TO MONITOR.
[2018-02-15 08:48] VITALS: BP 143/89
[2018-02-15] MEDS: PANTOPRAZOLE 40 MG TABLET.DR PO SCH (09:15)
[2018-02-15] MEDS: AMLODIPINE BESYLATE 10 MG TABLET PO SCH (09:16)
[2018-02-15] MEDS: risperiDONE 1 MG TABLET PO SCH ×2 (09:16→16:58)
[2018-02-15] MEDS: METOPROLOL TARTRATE 25 MG TABLET PO SCH ×2 (09:16→21:31)
--- NOTE | 2018-02-15 12:42 | NUR ---
CARA spoke to Dr. Beckett, pts psychiatrist who discussed the importance of linking pt to a facility (i.e. Convalescent home or Assisted Living) that could assist pt with medication support to increase med. compliance. CARA will follow up with treating team and pts family for the purpose of discharge planning.
--- NOTE | 2018-02-15 14:53 | NUR ---
CARA contacted pts brother Hari Melvin to discuss MD's recommendations for placement to SNF or Assisted Living upon discharge to ensure pts compliance with treatment and medication management. CARA left voicemail for call back.
[2018-02-15 16:00] VITALS: BP 110/65
[2018-02-15 20:25] VITALS: BP 136/76
[2018-02-16 08:00] VITALS: BP 136/57
[2018-02-16] MEDS: METOPROLOL TARTRATE 25 MG TABLET PO SCH (08:13)
[2018-02-16] MEDS: AMLODIPINE BESYLATE 10 MG TABLET PO SCH (08:13)
[2018-02-16] MEDS: PANTOPRAZOLE 40 MG TABLET.DR PO SCH (08:13)
[2018-02-16] MEDS: risperiDONE 1 MG TABLET PO SCH (08:13)
--- NOTE | 2018-02-16 09:30 | NUR ---
SW was contacted by pts brother Hari Melvin and informed SW that he only wants pt to be placed at [facility] Address: [address] [place] [address], [place] [address] . SW stated to pts brother that she would fax referral packet and wait to hear from economic development coordinator for possible admission.
--- NOTE | 2018-02-16 10:03 | NUR ---
Per pts brothers request, SW has faxed referral packet to Vanessa Quinn from [facility] Address: [address] , [place] [address] for possible admissions.
--- NOTE | 2018-02-16 15:47 | NUR ---
DISCHARGE NOTE: Pt was discharged at 4:00pm via [facility] ambulance trip #[id number] to [facility] (SNF) Address: [address] [place] [address] . Pts brother and conservator Luis [phone] was notified and agreed to discharge plan. Pt appeared in an anxious mood with blunted affect, pt was not happy with discharge plan as he wanted to be discharged home. Pt denied suicidal/homicidal ideations and denied visual/auditory hallucinations. Pt will be under the medical care of Chef French: Dr. Sara Tejada [address] [address] [phone] and Psychiatrist: Dr. Maine Scott [phone]. The multidisciplinary exitcare form was done, printed, signed, and given to the patient.
[2018-02-16 16:00] VITALS: BP 115/73
--- NOTE | 2018-02-16 16:14 | NUR ---
pt discharge by dr rivas. 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 pt going to [facility] address [address] [place] [address] [phone]. report given to recieving nurse, frederick oneal. pt is alert oriented x 2 - 3 and ambulatory. he is calm and cooperative. denies any s/i and/or h/i at time of dc. no acute distress noted. exitcare completed. med reconciled. skin is clear. belongings returned to patient. pt left in stable condition via ambulance.
== END 2018-02-16 16:20 | DRG 885 ==
LOC: ER 15:45 → GPS 17:47
PROVIDERS: ADMIT Registered Nurse; ATTEND Psychiatry & Neurology Psychiatry
DX: F20.0 Paranoid schizophrenia (principal); E44.1 Mild protein-calorie malnutrition; I10 Essential (primary) hypertension; Z91.14 Patient's other noncompliance with medication regimen; Z68.28 Body mass index [BMI] 28.0-28.9, adult; E88.09 Other disorders of plasma-protein metabolism, not elsewhere classified; Z87.891 Personal history of nicotine dependence
CPT/HCPCS: 36415; 80048-TC; 80053-TC; 80061-TC; 80076-TC; 80305; 81000-TC; 85025-TC; 87081-TC; A4606; G0480; J3490; Z7610